=== PATIENT | male | born 1975 | race American Indian/Alaskan Native ===

== ENCOUNTER 2017-01-22 18:54 | Emergency (ER) | payer SELFPAY | END 2017-01-22 19:00 | disposition left against medical advice (07) | LOC: ED 18:54 | DX: R50.9 Fever, unspecified (principal); R05 Cough; Z53.21 Procedure and treatment not carried out due to patient leaving prior to being seen by health care provider ==

== ENCOUNTER 2017-08-09 17:51 | Emergency (ER) | payer SELFPAY ==
[2017-08-09 17:58] VITALS: BP 143/96
--- NOTE | 2017-08-09 20:03 | Emergency Department Report ---
- General Chief complaint: Skin Rash Stated complaint: SWELLING TO LIPS Time Seen by Provider: 08/09/17 19:21 Source: patient Mode of arrival: Ambulatory Limitations: No Limitations - History of Present Illness Initial comments: 42-year-old male past medical history eczema presents with complaint of slightly itchy tiny crusted lesions to perioral area and lips. Patient is awake alert and oriented 3 not in acute distress fully lucid. States that over weekend he developed these blistery honey crusted lesions around the skin of his lips and on the skin of his lips. Patient denies fevers chills nausea vomiting. Patient has no trismus noted drooling speaking in full sentences. Denies any purulent drainage. States it feels very itchy and occasionally painful. Patient states that he often applies Chapstick and is questioning whether or not new Chapstick may have done this to him. Patient however states he has been using the same brand of Chapstick for several years. MD complaint: lesion, discoloration, other Onset/Timin -: days(s) Severity: moderate Worsens with: none Associated symptoms: itching Treatments Prior to Arrival: none - Related Data Previous Rx's Medication Instructions Recorded Last Taken Type Acyclovir [Zovirax] 400 mg PO Q8H #21 tablet 08/09/17 Unknown Rx Cephalexin [Keflex] 500 mg PO Q12HR #10 cap 08/09/17 Unknown Rx Ibuprofen [Motrin] 800 mg PO Q8HR PRN #20 tablet 08/09/17 Unknown Rx Mupirocin [Bactroban 2% OINT] 1 applic TP TID #1 tube 08/09/17 Unknown Rx Abscess Boil HPI - HPI Chief Complaint: Skin Rash Stated Complaint: SWELLING TO LIPS Time Seen by Provider: 08/09/17 19:21 Home Medications: Previous Rx's Medication Instructions Recorded Last Taken Type Acyclovir [Zovirax] 400 mg PO Q8H #21 tablet 08/09/17 Unknown Rx Cephalexin [Keflex] 500 mg PO Q12HR #10 cap 08/09/17 Unknown Rx Ibuprofen [Motrin] 800 mg PO Q8HR PRN #20 tablet 08/09/17 Unknown Rx Mupirocin [Bactroban 2% OINT] 1 applic TP TID #1 tube 08/09/17 Unknown Rx ED Review of Systems ROS: Stated complaint: SWELLING TO LIPS Other details as noted in HPI Constitutional: denies: chills, fever Eyes: denies: eye pain, eye discharge, vision change ENT: as per HPI. denies: ear pain, throat pain Respiratory: denies: cough, shortness of breath, wheezing Cardiovascular: denies: chest pain, palpitations Endocrine: no symptoms reported Gastrointestinal: denies: abdominal pain, nausea, diarrhea Genitourinary: denies: urgency, dysuria Musculoskeletal: denies: back pain, joint swelling, arthralgia Skin: denies: rash, lesions Neurological: denies: headache, weakness, paresthesias Psychiatric: denies: anxiety, depression Hematological/Lymphatic: denies: easy bleeding, easy bruising ED Past Medical Hx - Past Medical History Previous Medical History?: No - Surgical History Past Surgical History?: No - Social History Smoking Status: Never Smoker Substance Use Type: None - Medications Home Medications: Home Medications Medication Instructions Recorded Confirmed Last Taken Type Acyclovir [Zovirax] 400 mg PO Q8H #21 tablet 08/09/17 Unknown Rx Cephalexin [Keflex] 500 mg PO Q12HR #10 cap 08/09/17 Unknown Rx Ibuprofen [Motrin] 800 mg PO Q8HR PRN #20 tablet 08/09/17 Unknown Rx Mupirocin [Bactroban 2% OINT] 1 applic TP TID #1 tube 08/09/17 Unknown Rx ED Physical Exam - General Limitations: No Limitations General appearance: alert, in no apparent distress - Head Head exam: Present: atraumatic, normocephalic - Eye Eye exam: Present: normal appearance - ENT ENT exam: Present: mucous membranes moist, other (honey crusted lesions around the lips with some blistering) - Expanded ENT Exam Expanded Mouth exam: Present: other (perioral cedeño crusted lesions) - Neck Neck exam: Present: normal inspection - Respiratory Respiratory exam: Present: normal lung sounds bilaterally. Absent: respiratory distress - Cardiovascular Cardiovascular Exam: Present: regular rate, normal rhythm. Absent: systolic murmur, diastolic murmur, rubs, gallop - GI/Abdominal GI/Abdominal exam: Present: soft, normal bowel sounds - Rectal Rectal exam: Present: deferred - Extremities Exam Extremities exam: Present: normal inspection - Back Exam Back exam: Present: normal inspection - Neurological Exam Neurological exam: Present: alert, oriented X3 - Psychiatric Psychiatric exam: Present: normal affect, normal mood - Skin Skin exam: Present: warm, dry, intact, normal color. Absent: rash ED Course Vital Signs 08/09/17 17:56 Temperature 99.1 F Pulse Rate 64 Respiratory 20 Rate Blood Pressure 143/96 O2 Sat by Pulse 100 Oximetry ED Medical Decision Making - Medical Decision Making A/P: Impetigo versus oral herpes simplex 1-as patient has lesions that are both suggestive and characteristic of impetigo versus oral herpes will treat for both. Topical Bactroban ointment. Short course of acyclovir. 2-Motrin when necessary 3-f/u with dermatology and primary care Critical care attestation.: If time is entered above; I have spent that time in minutes in the direct care of this critically ill patient, excluding procedure time. ED Disposition Clinical Impression: Impetigo, Oral herpes simplex infection, Oral lesion Disposition: TO HOME OR SELFCARE Is pt being admited?: No Does the pt Need Aspirin: No Condition: Stable Instructions: Impetigo (ED), Oral Herpes Simplex Virus Infections (ED) Prescriptions: Acyclovir [Zovirax] 400 mg PO Q8H #21 tablet Cephalexin [Keflex] 500 mg PO Q12HR #10 cap Ibuprofen [Motrin] 800 mg PO Q8HR PRN #20 tablet PRN Reason: Pain , Severe (7-10) Mupirocin [Bactroban 2% OINT] 1 applic TP TID #1 tube Referrals: [facility] [Provider Group] - 3-5 Days [facility] [Outside] - 3-5 Days Forms: Work/School Release Form(ED) Time of Disposition: 20:02
== END 2017-08-09 20:05 | disposition home or self-care (01) ==
LOC: ED 17:51
DX: L01.00 Impetigo, unspecified (principal); B00.89 Other herpesviral infection
CPT/HCPCS: 99282